=== PATIENT | female | born 1985 | race Caucasian/White ===

== ENCOUNTER 2019-10-12 09:58 | Emergency (ER) | payer BC ==
[~2019-10-12] VITALS: Wt 65.8 kg
[~2019-10-12 09:58] MED LIST: NKHM; VICODIN 5/500 505 MG PO
[2019-10-12 10:36] LABS: BASO % 0.3 % (0.0-1.0); EOS % 0.7 % (1.0-4.0); HEMATOCRIT 43.3 % (37.0-47.0); LYMPH % 33.4 % (27.0-41.0); MEAN CORPUSCULAR HGB 31.5 pg (27.0-31.0); MEAN CORPUSCULAR HGB CONC 34.6 g/dl (33.0-37.0); MEAN PLATELET VOLUME 10.2 fl (9.6-12.3); MONO # 0.2 10*3/uL (0.1-1.0); MONO % 7.1 % (3.0-9.0); NEUT # 1.7 10*3/uL (2.3-7.9); NEUT % 58.2 % (47.0-73.0); PLATELET COUNT AUTOMATED 163 10*3/uL (130-400); RED BLOOD COUNT 4.76 10*6/uL (4.10-5.10); RED CELL DISTRI WIDTH 11.1 % (0-14.5)
[2019-10-12 10:47] LABS: ACT PARTIAL THROMBO TIME 26.7 SECONDS (20.0-32.1); INTERNATIONAL NORM RATIO 0.9 (2.0-3.5)
[2019-10-12 10:53] LABS: ALBUMIN 4.1 gm/dl (3.1-4.5); ALKALINE PHOSPHATASE 37 U/L (45-117); BUN 14 mg/dl (7-24); CHLORIDE 110 mmol/L (98-107); CREATININE 0.83 mg/dL (0.55-1.02); POTASSIUM 3.9 mmol/L (3.5-5.1); SGOT/AST 12 IU/L (3-35); SGPT/ALT 22 U/L (12-78); SODIUM 139 mmol/L (136-145); TOTAL PROTEIN 7.8 gm/dL (6.4-8.2)
[2019-10-12 10:54] LABS: B-hCG (QUALITATIVE) NEGATIVE (NEGATIVE)
[2019-10-12 11:10] LABS: TROPONIN I < 0.015 ng/ml (<0.045)
== END 2019-10-12 11:34 | disposition home or self-care (01) ==
LOC: ED 09:58
PROVIDERS: Emergency Medicine
DX: R00.2 Palpitations (principal); D72.810 Lymphocytopenia; R07.89 Other chest pain

== ENCOUNTER 2020-10-15 17:54 | Emergency (ER) | payer BC | END 2020-10-16 02:03 | disposition home or self-care (01) | LOC: ED 17:54 | DX: O20.0 Threatened abortion (principal); Z3A.01 Less than 8 weeks gestation of pregnancy ==